=== PATIENT | male | born 1980 | race Caucasian/White ===

== ENCOUNTER 2020-07-28 10:53 | Emergency (ER) | payer OTHER ==
[~2020-07-28] VITALS: Ht 182.9 cm; Wt 89.4 kg
[2020-07-28] MEDS ORDERED: ZPAK PO (12:05)
[2020-07-28] MEDS ORDERED: PREDNISONE 20 M20 M1 PO (12:05)
[2020-07-28] MEDS ORDERED: ZOFRAN ODT4 MG SUBLING (12:05)
[2020-07-28 12:15] VITALS: BP 176/98
== END 2020-07-28 12:15 | disposition home or self-care (01) ==
LOC: M.ERS 10:53
DX: U07.1 COVID-19 (principal)